=== PATIENT | female | born 1995 | race Caucasian/White ===

== ENCOUNTER 2017-04-29 10:39 | Emergency (ER) | payer MEDICAID, SELFPAY ==
[2017-04-29 10:39] VITALS: BP 155/87; PULSE 79; RESP 16; TEMP 37.1; O2SAT 94; BMI 48.5
--- NOTE | 2017-04-29 11:14 | ED.VISSUMM ---
- ER Visit Summary Date of Service: 04/29/17 Chief Complaint: Headache History of Present Illness: The patient is a 21 F with remote history of migraines who presents for a headache for 1 week. Patient has been having a throbbing headache in her mid frontal region and base of her skull intermittently for 1 week. Her headache is been constant since yesterday morning. She has associated photophobia and nausea. She has been taking Excedrin without control of the headache for the last day. No fever, blurry vision, double vision, vomiting, numbness or weakness in the arms or legs. Patient had migraine headaches 7-8 years ago that resolved after she had her wisdom teeth removed. She had shoulder surgery 6 weeks ago on the right shoulder and has been wearing a sling since that puts pressure at the base of her neck. Physical Examination: Vital signs: afebrile, hemodynamically stable, no hypoxia on room air General: well nourished, well developed, in no distress sitting with the lights off Skin: warm, dry, no rash, no pallor HEENT: normocephalic and atraumatic, no rash, no tenderness; PERRL, EOMI, no nystagmus, positive light sensitivity, moist mucous membranes neck is supple and nontender no meningismus Cardiovascular: regular rate and rhythm without murmurs, no peripheral edema, 2+ pulses all distal extremities Respiratory: No increased work of breathing, lungs are clear to auscultation bilaterally, no rales, rhonchi or wheezing Abdominal: Abdomen is soft, nontender with normoactive bowel sounds, no guarding or rebound, no masses MSK: Moves all extremities, no deformities, normal strength Neuro: Awake and alert, oriented ?4. No facial droop, sensation and motor function intact and symmetric Test Results: [] Emergency Department Course and Treatment: Patient had no red flag symptoms that would be concerning for intracranial hemorrhage or mass. No meningismus. Patient was treated with a migraine cocktail of IV fluids, Toradol, Compazine and Benadryl. She had complete resolution of her headache afterwards and was able to tolerate the lights on. She will follow-up with her doctor for recurrence of her migraine headaches. She was discharged home with return precautions. Treatment Plan: [] Disposition: [] Impression: Grade headache This note was generated with [employer] software. It may contain incorrect words, spelling, and punctuation that were not noted in review of the chart prior to signing ED Disposition - Plan for ED Patient: Disposition: Home or Assisted Living Chief Complaint: Headache Instructions: ED Headache Migraine Referrals: Gayle Fagan NP-C [Primary Care Provider] - 3-5 Days if not improving Additional Instructions: Please continue taking Excedrin as needed for headache. If you begin having migraine-like headaches again, please follow-up with your doctor to discuss treatment options. If you have any worsening of your condition or any new concerning symptoms, please return immediately to the ER for another evaluation.
[2017-04-29] MEDS: Ketorolac 30 MG/ML Syringe 15 MG IV (11:58)
[2017-04-29] MEDS: 0.9% Normal Saline 1,000 ML 999 ML IV (11:58)
[2017-04-29] MEDS: DiphenhydrAMINE 50 MG/ML Syringe IV (11:58)
[2017-04-29] MEDS: proCHLORPERazine 10 MG/2 ML Vial IV (11:59)
--- NOTE | 2017-04-29 13:35 | ED.DEP ---
ED Disposition - Plan for ED Patient: Disposition: Home or Assisted Living Chief Complaint: Headache Instructions: ED Headache Migraine Referrals: Gayle Fagan NP-C [Primary Care Provider] - 3-5 Days if not improving Additional Instructions: Please continue taking Excedrin as needed for headache. If you begin having migraine-like headaches again, please follow-up with your doctor to discuss treatment options. If you have any worsening of your condition or any new concerning symptoms, please return immediately to the ER for another evaluation.
== END 2017-04-29 13:50 | disposition home or self-care (01) ==
PROVIDERS: Emergency Provider Emergency Medicine; Family Provider Nurse Practitioner Family; PCP Nurse Practitioner Family
DX: G43.909 Migraine, unspecified, not intractable, without status migrainosus (principal)
CPT/HCPCS: 96361; 96374; 96375; 99285; J7030; A4216

== ENCOUNTER 2017-07-22 08:30 | Outpatient (RCR) | payer MEDICAID, SELFPAY ==
--- NOTE | 2017-04-08 16:21 | HP.PTEVAL_ITS ---
Patient's Visit Information WOO CONSTANTINO is a 21 year old F referred to Physical Therapy by Out of Town Doctor EDUARD TINEO NP with a diagnosis of R labral tear of the R shoulder s /p 03-23-2017. Date of Evaluation: 04/08/17 Physical Therapist: Loreto Hurtado - Visit Plan Frequency: 2x /Week Duration: 2 Months Plan: Called MD for protocol. For now avoid any PROm greater than 90 degrees elevation and ER greater than 20 degrees. ok for postural exercises. 2X/ week for 8 weeks for R shoulder PROM and then progressing to AAROM and AROM and then strengthening with postural strengthening per protocol. - Subjective Subjective: She had R shoulder surgery September 20 and he put 5 anchors in and tightened up her entire shoulder....did rehab and was doing really well and then in Jan when he was putting on a pair of short boots and had 10/10 pain and then was fastening her bra and she heard a pop and a lot of pain. They moved her MRI up and saw tears. When he got in there her whole labrum was shredded. Then she had Surgery on Mar 23. She saw last and he said that for the next year she has to baby the shoulder and does not think she will put her arm over her head for a year. She started taking glucosamine and chondrotin to see if that will help to strengthen her cartiladge. She has 5/10 pain currently. She is in a sling and said it was up to PT to take her out of it when she was ready. She has restricitions to keep elbow by her side for first of weeks.... Sleeping about 5-6 hours and still sleeps in a recliner because the pull on the shoulder even with a pillow was too much. Pt is L handed. - Pain R shoulder pain Pain Intensity (Out of 10): 5 - Objective PROM R shoulder abd to 65 degrees, flexion to 80 degrees, ER to 15 degrees. Pt demonstrated good R shoulder hang in pendulum. Pt has good movement of her hand and elbow - Goals Goal 1:: I HEP Goal Time Frame: 4-6 Weeks Goal 2:: Increase R shoulder AROM to 90 degrees elevation without pain or substitution Goal Time Frame: 4-6 Weeks Goal 3:: R shoulder flex, abd, ER and IR strength to 4/5 all planes Goal Time Frame: 4-6 Weeks Goal 4:: Sit with good posture during treatment sessions Goal Time Frame: 4-6 Weeks - Rehabilitation Potential Rehabilitation Potential: Good - Anticipated Interventions Patient/Client Instruction: Educate patient on: Condition, Plan of Care For the Purpose of:: To decrease pain, To decrease swelling/inflammation, To increase ROM, To improve nutrient delivery to tissue, To improve muscle performance and motor function, To improve ability to perform ADL's, To increase tolerance to activity/condition/position Therapeutic Exercise to Include: Strength training, Postural training, Flexibilty training, Passive ROM, Active ROM, Scapular Strength/Stabilization For the Purpose of:: To decrease pain, To decrease swelling/inflammation, To increase ROM, To improve nutrient delivery to tissue, To improve muscle performance and motor function, To increase tolerance to activity/condition/ position, To improve performance and independence with ADL's, To improve health of tissue, To decrease soft tissue restriction Manual Therapy Techniques to Include: Passive ROM For the Purpose of:: To decrease pain, To increase ROM, To improve nutrient delivery to tissue, To improve muscle performance and motor function IF ES: Yes Cryotherapy (ice pack, ice massage): Yes Thermo therapy (hot pack): Yes For the Purpose of:: To decrease pain, To decrease swelling/inflammation, To increase ROM, To improve nutrient delivery to tissue Thank you for the opportunity to evaluate your patient. For Medicare and Medicare HMO plans, please review the plan of care and approve it. It will need to be FAXED BACK to us at [phone] for Medicare purposes. Please let me know if there are questions or concerns regarding this plan of care. Physician Signature: Date:
--- NOTE | 2017-07-22 09:02 | HP.PTDCSUM_ITS ---
HP - PT D/C Summary It has been my pleasure to treat WOO CONSTANTINO under orders from METAL SANDER AND FINISHER,EDUARD TINEO, for the diagnosis of R labral tear of the R shoulder s/p 03-23-2017 for a total of 24 visit(s). Discharge Date: Please see the following information for a summary of their discharge status. - Subjective Subjective: Pt reports that she feels a lot better and still struggles with things overhead. She is good with anything out in front of her or playing the piano. - Pain R shoulder pain Pain Intensity (Out of 10): 2 - Overall Improvement % Improvement: 85 - Objective Objective/Function: No problems with any exercises today including wall inch worms - Goals Goal 1:: I HEP Goal Progress: Goal Met Goal 2:: Increase R shoulder AROM to 90 degrees elevation without pain or substitution Goal Progress: Goal Met Goal 3:: R shoulder flex, abd, ER and IR strength to 4/5 all planes Goal Progress: Goal Met Goal 4:: Sit with good posture during treatment sessions Goal Progress: Goal Met - Plan Plan: Re-check next visit. Write PN to MD. Make sure pt has bands to continue with HEP. - D/C Information If there are questions or concerns regarding this patient's physical therapy, please feel free to call me at [phone]. Thank you for the referral of this patient. Sincerely, Loreto Hurtado
== END 2017-07-22 16:16 | disposition home or self-care (01) ==
LOC: PT 08:30
PROVIDERS: Family Provider Nurse Practitioner Family; PCP Nurse Practitioner Family
DX: S43.431D Superior glenoid labrum lesion of right shoulder, subsequent encounter (principal)
CPT/HCPCS: 97014; 97110; 97140; 97161; 97530; G0283

== ENCOUNTER → 2018-01-10 16:01 | Outpatient (CLI) | payer MEDICAID, SELFPAY ==
[2018-01-10 15:26] VITALS: BMI 49.4
[2018-01-10 17:06] LABS: Absolute Lymphocyte Count 2.49 X10^3/ul (0.83-4.51); Absolute Neutrophil Count 6.4 X10^3/uL (2.0-7.7); Basophil# 0.04 X10^3/uL; Basophil% 0.4 % (0-1); Eosinophil# 0.19 X10^3/uL; Hematocrit 35.8 % (37-47); Hemoglobin 11.8 g/dl (12.0-15.0); Lymphocyte # 2.49 X10^3/ul (4.0); Lymphocyte % 25.7 % (19-41); Mean Corpuscular Hgb 27.1 pg (27.0-32.0); Mean Corpuscular Volume 82.1 fL (81-99); Mean Platelet Vol. 11.1 fl (6.2-12.0); Monocyte# 0.55 X10^3/uL; Monocyte% 5.7 % (0-10); Neutrophil # 6.42 X10^3/uL (2.7-7.7); Neutrophil % 66.1 % (47-70); POSITIVE COUNT NO; POSITIVE DIFFERENTIAL NO; POSITIVE MORPHOLOGY NO; Platelet Count 316 K/mm3 (150-450); RBC Distribution Width CV 13.8 % (11.6-14.6); RBC Distribution Width SD 40.7 fl (35.1-43.9); Red Blood Count 4.36 M/mm3 (4.2-5.4); White Blood Count 9.7 K/mm3 (4.4-11.0)
[2018-01-10 18:00] LABS: Follicle Stimulating Hormone 1.5 mIU/mL; Prolactin 7.8 ng/mL; T4 Free Direct 0.89 ng/dL (0.76-1.46); Thyroid Stim Hormone (TSH) 4.72 uIU/mL (0.358-3.74)
[2018-01-16 15:51] LABS: 17-Hydroxyprogesterone 85 ng/dL (.)
[2018-01-16 16:09] LABS: Testosterone Free 1.5 pg/mL (0.0-4.2)
== END ==
PROVIDERS: Family Provider Nurse Practitioner Family; PCP Nurse Practitioner Family; Referring Provider Obstetrics & Gynecology; Visit Provider Obstetrics & Gynecology
DX: N92.6 Irregular menstruation, unspecified (principal)
CPT/HCPCS: 36415; 82627; 83001; 83498; 84146; 84402; 84439; 84443; 85025; 82626

== ENCOUNTER 2018-11-26 16:09 | Emergency (ER) | payer MEDICAID, SELFPAY ==
[2018-09-11 08:38] VITALS: BMI 49.4
[2018-11-26 16:10] VITALS: BP 146/93; PULSE 90; RESP 18; TEMP 36.3; O2SAT 98; BMI 46.5
--- NOTE | 2018-11-26 16:20 | ED.DCSUM_ITS ---
- ER Visit Summary Date of Service: 11/26/18 Chief Complaint: [Left shoulder pain] History of Present Illness: The patient is a 23 F [presents to the emergency department with an injury to her left shoulder. Patient states that last evening while in the shower she reached across her body and felt a pop in her left shoulder. Patient having a hard time abducting secondary to pain. Patient states that she is had 4 surgeries on her right shoulder for various reasons including shaving of the clavicle and acromium. Patient also had repair to the tendons around the shoulder joint with anchoring. Patient has history of hypothyroidism.] Physical Examination: [HEENT-PERRLA, EOMI. Cranial nerves II through XII grossly intact. TMs clear. Mucous membranes moist. No adenopathy. Cardiovascular-regular rate and rhythm without murmur or ectopy Lungs-clear to auscultation, chest wall stable without crepitus or subcu emphysema Abdomen-normoactive bowel sounds, soft, nontender, no rebound or rigidity, no peritoneal signs. Extremities-intact ?4, normal range of motion, normal pulses, atraumatic. Left shoulder-no evidence of swelling or deformity. No sulcus sign. Patient does have range of motion within the glenohumeral joint however somewhat limited secondary to pain. Patient has pain with abduction and internal rotation. She is neurovascular intact distally.] Test Results: [X-rays of the left shoulder were normal as interpreted by myself.] Emergency Department Course and Treatment: [Patient has a sling at home and does not want one from the emergency department.] Treatment Plan: [Patient will be referred to orthopedics instructional aide for follow-up. Patient advised to use a sling for comfort. Patient would like to continue with Aleve at home for any discomfort.] Disposition: [Discharged home in stable condition.] Impression: [Shoulder sprain-possible internal derangement] This note was generated with [employer] dictation software. It may contain incorrect words, spelling, and punctuation that were not noted in review of the chart prior to signing ED Disposition - Plan for ED Patient: Referrals: Gayle Fagan, ROD-C [Primary Care Provider] -
--- NOTE | 2018-11-26 16:30 | RAD_ITS ---
STUDY: X-RAY - LEFT SHOULDER REASON FOR EXAM: Female, 23 years old. Pain and felt a pop TECHNIQUE: 2 view(s) of the shoulder. COMPARISON: None. FINDINGS: Normal glenohumeral articulation. Normal acromioclavicular joint. Normal acromion. Normal humeral head and visualized proximal humerus. The soft tissue structures are unremarkable. Normal visualized pulmonary apex. RAD/Shoulder min 2 Views IMPRESSION: Normal x-ray examination of the shoulder. Electronically Signed: Yonas Tolliver MD at 16:41 EDT Tel , Service support ,
--- NOTE | 2018-11-26 16:42 | ED.DEP ---
ED Disposition - Plan for ED Patient: Instructions: Shoulder Sprain Referrals: Gayle Fagan NP-C [Primary Care Provider] - Malena Paredes DO [STAFF PHYSICIAN] - 3-5 Days
[2018-11-26 16:51] VITALS: RESP 18
== END 2018-11-26 16:51 | disposition home or self-care (01) ==
LOC: ED 16:32
PROVIDERS: Emergency Provider Emergency Medicine; Family Provider Nurse Practitioner Family; PCP Nurse Practitioner Family
DX: S43.402A Unspecified sprain of left shoulder joint, initial encounter (principal); X50.1XXA Overexertion from prolonged static or awkward postures, initial encounter; Y93.E1 Activity, personal bathing and showering; E03.9 Hypothyroidism, unspecified; Z79.899 Other long term (current) drug therapy
CPT/HCPCS: 73030; 99282

== ENCOUNTER → 2018-12-07 13:34 | Outpatient (CLI) | payer MEDICAID, SELFPAY ==
[2018-12-07 13:02] VITALS: BMI 49.6
--- NOTE | 2018-12-07 13:35 | RAD_ITS ---
STUDY: X-RAY - LEFT SHOULDER REASON FOR EXAM: Left shoulder pain. TECHNIQUE: A single axillary view of the shoulder. COMPARISON: Radiographs 11/26/2018. FINDINGS: Normal glenohumeral articulation. Normal acromion. Normal humeral head and visualized proximal humerus. The soft tissue structures are unremarkable. RAD/Shoulder One View IMPRESSION: Normal x-ray examination of the left shoulder. Electronically Signed: Jimmie Gale MD at 15:13 EDT Tel , Service support ,
== END ==
PROVIDERS: Family Provider Nurse Practitioner Family; PCP Nurse Practitioner Family; Referring Provider Orthopaedic Surgery; Visit Provider Orthopaedic Surgery
DX: M25.512 Pain in left shoulder (principal)
CPT/HCPCS: 73020

== ENCOUNTER 2019-01-17 10:30 | Outpatient (RCR) | payer MEDICAID, SELFPAY ==
[2018-12-07 13:02] VITALS: BMI 49.6
--- NOTE | 2018-12-19 09:51 | HP.PTEVAL ---
Patient's Visit Information WOO CONSTANTINO is a 23 year old F referred to Physical Therapy by Malena Paredes DO with a diagnosis of L shoulder Impingement/biceps tendonitis. Date of Evaluation: 12/19/18 Physical Therapist: ALISON Paez - Visit Plan Frequency: 2x /Week Duration: 4 Weeks Plan: 2X/ week for 4 weeks for L shoulder and scapular strength including eccentric bicep strength, postural exercises, US with HEP - Subjective Findings: A month and a half ago she was reaching across her body and she had intense pain and heard a pop. The pain continued through the next day. She went to ER in [place] and they did an x-ray and said it was not dislocated. That night she rolled over on her shoulder and heard another pop and the pain went away. She went to the Ortho Dr Hetal (a week later) and she said that she is not sure if her bicep muscle slipped. She has a little pain if she touches the front part of her shoulder. She has a little pain when she reaches across her body. She can sleep on her L shoulder. She is L handed. - Pain L shoulder pain Pain Intensity (Out of 10): 0 - Objective R shoulder AROM; full range of motion. L shoulder AROM: full range of motion. R shoulder MMT: 4/5 all planes. L shoulder MMT: abd 4-/5, flex 4-/5, ER/IR 4/5. L bicep 4-/5 and increase pain. +HK test for impingement on the L. + Empty Can for slight pain and slight weakness (probably due to pain). Posture: sits with upright posture during eval. Palpation: Tender under the acromion and tender along the biceps tendon the L. L handed L senior facilities manager strength 73# R senior facilities manager strength 69# - Goals Goal 1:: I HEP Goal Time Frame: 4-6 Weeks Goal 2:: Increase L shoulder AROM by 1/2 muscle grade to lessen the chances of dislocation ( at time of the eval MMT: L shoulder MMT: abd 4-/5, flex 4-/5, ER/IR 4/5 and L bicep 4-/5 and increase pain Goal Time Frame: 4-6 Weeks Goal 3:: Be able to reach across her body and not have sharp pain Goal Time Frame: 4-6 Weeks Goal 4:: Sit with upright posture during treatment sessions Goal Time Frame: 4-6 Weeks - Rehabilitation Potential Rehabilitation Potential: Good - Anticipated Interventions Patient/Client Instruction: Educate patient on: Condition, Plan of Care For the Purpose of:: To decrease pain, To increase ROM, To improve nutrient delivery to tissue, To improve muscle performance and motor function, To improve ability to perform ADL's, To increase tolerance to activity/condition/position, To improve performance and independence with ADL's, To improve health of tissue Therapeutic Exercise to Include: Strength training, Postural training, Flexibilty training, Passive ROM, Active ROM, Scapular Strength/Stabilization For the Purpose of:: To decrease pain, To increase ROM, To improve nutrient delivery to tissue, To improve muscle performance and motor function, To improve ability to perform ADL's, To improve health of tissue, To decrease soft tissue restriction IF ES: Yes Cryotherapy (ice pack, ice massage): Yes Ultrasound (thermal/non thermal): Yes For the Purpose of:: To decrease pain, To increase ROM, To improve nutrient delivery to tissue, To improve muscle performance and motor function, To increase tolerance to activity/condition/position, To decrease level of supervision to perform tasks Thank you for the opportunity to evaluate your patient. For Medicare and Medicare HMO plans, please review the plan of care and approve it. It will need to be FAXED BACK to us at [phone] for Medicare purposes. For Medicare only, by signing this I certify the plan of care. Please let me know if there are questions or concerns regarding this plan of care. Physician Signature: Date:
--- NOTE | 2019-01-17 11:04 | HP.PTREVAL ---
Malena Paredes, DO, It has been my pleasure to treat WOO CONSTANTINO over the last 7 visits for L shoulder Impingement/biceps tendonitis. Please see the progress note below for an update on the physical therapy plan of care! Subjective: Pt reports that she feels a lot better.... Objective/Function: MMT: abd 4/5, flex 4/5, ER/IR 4/5 and L bicep 4/5 Plan Plan: Hold chart for 2 weeks and pt will call in if she needs further PT at that point. Then DC PT Goals Goal 1:: I HEP Goal Time Frame: 4-6 Weeks Goal Progress: Goal Met Goal 2:: Increase L shoulder AROM by 1/2 muscle grade to lessen the chances of dislocation ( at time of the eval MMT: L shoulder MMT: abd 4-/5, flex 4-/5, ER/IR 4/5 and L bicep 4-/5 and increase pain Goal Time Frame: 4-6 Weeks Goal 3:: Be able to reach across her body and not have sharp pain Goal Time Frame: 4-6 Weeks Goal Progress: Goal Met Goal 4:: Sit with upright posture during treatment sessions Goal Time Frame: 4-6 Weeks Goal Progress: Goal Met Anticipated Interventions Patient/Client Instruction: Educate patient on: Condition, Plan of Care For the Purpose of:: To decrease pain, To increase ROM, To improve nutrient delivery to tissue, To improve muscle performance and motor function, To improve ability to perform ADL's, To increase tolerance to activity/condition/position, To improve performance and independence with ADL's, To improve health of tissue Therapeutic Exercise to Include: Strength training, Postural training, Flexibilty training, Passive ROM, Active ROM, Scapular Strength/Stabilization For the Purpose of:: To decrease pain, To increase ROM, To improve nutrient delivery to tissue, To improve muscle performance and motor function, To improve ability to perform ADL's, To improve health of tissue, To decrease soft tissue restriction IF ES: Yes Cryotherapy (ice pack, ice massage): Yes Ultrasound (thermal/non thermal): Yes For the Purpose of:: To decrease pain, To increase ROM, To improve nutrient delivery to tissue, To improve muscle performance and motor function, To increase tolerance to activity/condition/position, To decrease level of supervision to perform tasks Please do not hesitate to contact me at [phone] by phone or if you have questions or concerns regarding this new plan of care! Sincerely, Loreto Hurtado, MPT
--- NOTE | 2019-02-12 14:49 | HP.PT.NRP ---
HP - Discharge Summary (1) - Patient Information WOO CONSTANTINO was seen in my office for initial evaluation on 12/19/18. The following Plan of Care was established for this patient: Initial Frequency: 2x /Week Initial Duration: 4 Weeks - Anticipated Interventions Patient/Client Instruction: Educate patient on: Condition, Plan of Care For the Purpose of:: To decrease pain, To increase ROM, To improve nutrient delivery to tissue, To improve muscle performance and motor function, To improve ability to perform ADL's, To increase tolerance to activity/condition/position, To improve performance and independence with ADL's, To improve health of tissue Therapeutic Exercise to Include: Strength training, Postural training, Flexibilty training, Passive ROM, Active ROM, Scapular Strength/Stabilization For the Purpose of:: To decrease pain, To increase ROM, To improve nutrient delivery to tissue, To improve muscle performance and motor function, To improve ability to perform ADL's, To improve health of tissue, To decrease soft tissue restriction IF ES: Yes Cryotherapy (ice pack, ice massage): Yes Ultrasound (thermal/non thermal): Yes For the Purpose of:: To decrease pain, To increase ROM, To improve nutrient delivery to tissue, To improve muscle performance and motor function, To increase tolerance to activity/condition/position, To decrease level of supervision to perform tasks This patient was last seen in our office . Pertinent comments regarding their Physical therapy will appear below: At this point I will be discontinuing this patient from physical therapy. I would be happy to see this patient again in the future if found appropriate by the physician. Thank you! ALISON Paez
== END 2019-01-17 19:00 | disposition home or self-care (01) ==
LOC: PT 10:30
PROVIDERS: Family Provider Nurse Practitioner Family; PCP Nurse Practitioner Family; Referring Provider Orthopaedic Surgery; Visit Provider Orthopaedic Surgery
DX: M75.42 Impingement syndrome of left shoulder (principal); M75.20 Bicipital tendinitis, unspecified shoulder
CPT/HCPCS: 97035; 97110; 97161

== ENCOUNTER 2021-05-21 20:06 | Emergency (ER) | payer MEDICAID, SELFPAY ==
[2021-05-21 20:11] VITALS: BP 151/94; PULSE 74; RESP 18; TEMP 36.6; O2SAT 98; BMI 48.2
[2021-05-21 20:34] LABS: Absolute Lymphocyte Count 1.95 X10^3/uL (0.83-4.51); Absolute Neutrophil Count 7.5 X10^3/uL (2.0-7.7); Basophil# 0.02 X10^3/uL; Basophil% 0.2 % (0-1); Eosinophil# 0.01 X10^3/uL; Eosinophils% 0.1 % (0-5); Hematocrit 39.5 % (37-47); Hemoglobin 13.4 g/dL (12.0-15.0); Lymphocyte # 1.95 X10^3/ul (0.83-4.51); Lymphocyte % 19.5 % (19-41); Mean Corp Hgb Conc 33.9 g/dL (32-36); Mean Corpuscular Hgb 28.8 pg (27.0-32.0); Mean Corpuscular Volume 84.9 fL (81-99); Mean Platelet Vol. 10.9 fl (6.2-12.0); Monocyte# 0.45 X10^3/uL; Monocyte% 4.5 % (0-10); NRBC Flagged by Analyzer 0 % (0-5); Neutrophil # 7.53 X10^3/uL (2.7-7.7); Neutrophil % 75.3 % (47-70); Platelet Count 311 K/mm3 (150-450); RBC Distribution Width SD 40.2 fl (35.1-43.9); Red Blood Count 4.65 M/mm3 (4.2-5.4)
[2021-05-21 20:47] LABS: Anion Gap 8 (5-15); BUN 7 mg/dL (7-18); Calcium,Total 9.3 mg/dL (8.5-10.1); Chloride 109 mmol/L (98-107); Creatinine, Serum 0.78 mg/dL (0.55-1.02); EST Glomerular Filtration Rate 93 mL/min (>60); Est Glom Filt Rate - Afr Amer 113 mL/min (>60); Estimated Creatinine Clearance 96.62 ml/min; Glucose 127 mg/dL (74-106); Potassium 4.1 mmol/L (3.5-5.1); Sodium Level 138 mmol/L (136-145)
--- NOTE | 2021-05-21 22:21 | CT_ITS ---
EXAM: CT ABDOMEN AND PELVIS WITH INTRAVENOUS CONTRAST CLINICAL INDICATION: abd pain TECHNIQUE: Helically acquired images were obtained of the abdomen and pelvis with intravenous contrast. This CT exam was performed using one or more of the following dose reduction techniques: automated exposure control, adjustment of the mA and/or kV according to patient size, and/or use of iterative reconstruction technique. This report was created using [employer] report generation technology. RADIATION DOSAGE (If Required by State): CTDIvol = (25.35) mGy, DLP = (1292.44) mGycm. CONTRAST: IV 100mL Isovue-300 COMPARISON: 07/13/2011. FINDINGS: LOWER THORAX: Unremarkable. Lung bases are clear. No cardiomegaly. No significant pericardial effusion. ABDOMEN: LIVER: Unremarkable. Homogeneous. No focal mass. GALLBLADDER AND BILE DUCTS: Multiple gallstones. No gallbladder wall thickening or pericholecystic fluid. No intra- or extrahepatic biliary ductal dilation. PANCREAS: Unremarkable. No focal cystic or solid mass. SPLEEN: Unremarkable. Normal size without focal cystic or solid mass. ADRENALS: Unremarkable. No nodules. KIDNEYS AND URETERS: Unremarkable. Normal renal size and position. No hydronephrosis. STOMACH AND BOWEL: Unremarkable. No stomach or bowel distention. No focal inflammatory change. PELVIS: APPENDIX: Normal appendix. BLADDER: Unremarkable. REPRODUCTIVE: Unremarkable as visualized. No mass. ABDOMEN and PELVIS: INTRAPERITONEAL SPACE: Unremarkable. No ascites or other fluid collection. No free air. BONES/JOINTS: Unremarkable. No suspicious lytic or blastic abnormality. SOFT TISSUES: Unremarkable. No discrete abdominal or pelvic wall hernia. VASCULATURE: Unremarkable. Abdominal aorta is non-dilated. LYMPH NODES: Unremarkable. No enlarged lymph nodes. CT/Abdomen/Pelvis W IV Cont ONLY IMPRESSION: Cholelithiasis without specific signs of acute cholecystitis. Electronically Signed: Michael Amin MD at 23:32 EDT ,
[2021-05-21 22:29] VITALS: BP 134/78; PULSE 78; RESP 14; O2SAT 98
[2021-05-21 22:52] LABS: AST(SGOT) 115 U/L (15-37); Alanine Aminotransfer ALT/SGPT 73 U/L (13-56); Albumin, Serum 3.5 g/dL (3.2-5.0); Alkaline Phosphatase 134 U/L (45-117); Bilirubin, Direct 1.09 mg/dL (0.00-0.30); Globulin 4.2 g/dL (2.2-4.2); Lipase 113 U/L (73-393); Protein, Total 7.7 g/dL (6.4-8.2)
--- NOTE | 2021-05-21 22:59 | EX.ED.DYSGE1 ---
HPI History of Present Illness Chief Complaint: Abd Pain Narrative Narrative: Patient is a 26-year-old female with a past medical history of gallstones. She states that she noticed when she awoke this morning she had some pain in her right sided mid to low back. She states she thought she had just injured it over the last 1 to 2 days however despite taking over the counter medication and giving it some time throughout the day the pain seemed to worsen and then moved to the mid epigastric region of her abdomen. She went to an outside facility where she had blood work and a ultrasound obtained which showed gallstones but no signs of acute cholecystitis. Patient states that she was discharged home but despite this still has pain and feels like it is worsening and therefore comes to the hospital for repeat evaluation. [facility] Medical History Allergies Hyperthyroidism Left ankle sprain Sprain of left foot Home Medications levothyroxine 25 mcg tablet 25 mcg PO DAILY 09/11/18 [History Last Taken Unknown] norethindrone 1 mg-ethinyl estradiol 20 mcg (24)-iron 75 mg (4) tablet 1 tab PO QDAY #28 tab 09/11/18 [Rx Last Taken Unknown] norethindrone 1 mg-ethinyl estradiol 20 mcg (24)-iron 75 mg (4) tablet 1 tab PO QDAY #84 tab 09/11/18 [Rx Last Taken Unknown] antiarthritic combination no.2 900 mg tablet mg PO tab 12/05/18 [History Last Taken Unknown] multivitamin 1 tab PO DAILY 12/05/18 [History Last Taken Unknown] azithromycin 250 mg tablet 250 mg PO QDAY #6 tab 01/23/19 [Rx Last Taken Unknown] benzonatate 200 mg capsule 200 mg PO TID PRN #20 cap 01/23/19 [Rx Last Taken Unknown] omega-3 fatty acids 1,000 mg capsule 1,000 mg PO DAILY 01/23/19 [History Last Taken Unknown] red yeast rice 600 mg capsule 600 mg PO DAILY 01/23/19 [History Last Taken Unknown] hydrocodone-acetaminophen 1 tab PO Q6H PRN 3 Days #12 tab 05/22/21 [Rx Last Taken Unknown] ondansetron 4 mg PO TID PRN PRN #21 tab 05/22/21 [Rx Last Taken Unknown] Allergy/AdvReac Type Severity Reaction Status Date / Time rizatriptan [From Maxalt] Allergy Anaphylaxis Verified 05/21/21 20:15 sumatriptan [From Imitrex] Allergy Anaphylaxis Verified 05/21/21 20:15 morphine AdvReac Vomiting Verified 05/21/21 20:15 Family History Grandmother Diabetes Heart disease Hypertension Father Diabetes Heart disease Hypertension Surgical History H/O dilation and curettage Social History Smoking Status: Never smoker alcohol intake: never substance use type: does not use caffeine: Yes what type of physical activity do you participate in: walking seatbelt use: always do you feel safe at home: Yes additional social history: single, works from home ROS ROS ED Constitutional Constitutional ED: Denies chills or fever(s) ENT ENT ED: Denies sore throat Cardiovascular Cardiovascular: Denies chest pain Respiratory/Chest Respiratory/Chest: Denies cough or dyspnea Gastrointestinal Gastrointestinal: Reports abdominal pain; Denies diarrhea, nausea or vomiting Genitourinary Genitourinary ED: Denies dysuria Musculoskeletal Musculoskeletal: Reports back pain; Denies myalgias Integumentary Denies rash Neurologic Neurologic: Denies headache(s) Hematologic/Lymphatic Hematologic/Lymphatic: Denies easy bleeding or easy bruising EXAM Physical Exam Const Vital Signs: 05/21/21 20:11 05/21/21 22:29 Temperature 97.9 F Temperature Source Temporal Pulse Rate 74 78 Respiratory Rate 18 14 Blood Pressure 151/94 H 134/78 H Blood Pressure Mean 113 96 Pulse Ox 98 98 Oxygen Delivery Method Room Air Room Air Positive well nourished, well developed and obese General Appearance ED: well developed Nutritional Appearance: obese HEENT Reports moist mucous membranes Eyes PERRL and EOMs intact bilaterally General Eye ED: Negative for scleral icterus Neck supple Resp normal respiratory effort and clear to auscultation bilaterally Cardio regular rate and regular rhythm Rate: other Other Details: Radial pulses are +2-4 bilaterally are equal and symmetric GI non-distended and no masses GI Narrative: Pain with palpation in the right upper quadrant and midepigastric region. No voluntary guarding or rigidity. Negative West sign. No pulsatile mass or fluid wave noted Auscultation: normoactive bowel sounds Palpation: soft Back/Spine Back/Spine Narrative: Positive right CVA pain Extremity normal to inspection Neuro oriented x3 and CN's II-XII intact bilaterally Sensorium / Orientation: alert Motor Exam: strength 5/5 throughout Psych mental status grossly normal Skin no rashes or lesions noted Skin Narrative: No overlying soft tissue changes to suggest trauma or infection General Skin Exam: Negative for jaundice MDM MDM MDM Narrative Medical decision making narrative: Presented to the ER afebrile and in no acute distress. She had blood work and gallbladder ultrasound done earlier but with pain in the right upper quadrant and right back there is concern this could be a possible pyelonephritis or pancreatitis so elected to repeat blood work urine sample and a CT scan of the abdomen and pelvis. Blood work revealed mild elevation to the liver enzymes as well as total bilirubin. Her CAT scan confirmed gallstones from the previous ultrasound but showed no signs of infectious or inflammatory changes in the remainder of the imaging revealed no acute findings. On reevaluation the patient is resting comfortably and reports resolution of her pain and her abdomen remains soft and nonsurgical. Therefore I do feel the patient is having biliary colic as a cause of her pain but as it is not infected and she is not having intractable pain there is no need for admission and emergent surgical fixation. Therefore she will be discharged home with symptomatic medications and can follow-up with general surgery to discuss need for cholecystectomy Lab Data Attestation: I reviewed the patient's lab results. Labs: Laboratory Results - last 24 hr 05/21/21 05/21/21 05/21/21 20:20 20:20 20:20 WBC 10.0 RBC 4.65 Hgb 13.4 Hct 39.5 MCV 84.9 MCH 28.8 MCHC 33.9 RDW Std Deviation 40.2 RDW Coeff of Rober 13.0 Plt Count 311 MPV 10.9 Immature Gran % (Auto) 0.400 Neut % (Auto) 75.3 H Lymph % (Auto) 19.5 Elbert % (Auto) 4.5 Eos % (Auto) 0.1 Baso % (Auto) 0.2 Absolute Neuts (auto) 7.5 Absolute Lymphs (auto) 1.95 Nucleated RBC % 0 Sodium 138 Potassium 4.1 Chloride 109 H Carbon Dioxide 21.0 Anion Gap 8 BUN 7 Creatinine 0.78 Estim Creat Clear Calc 96.62 Est GFR (MDRD) Af Amer 113 Est GFR (MDRD) Non-Af 93 BUN/Creatinine Ratio 9.0 L Glucose 127 H Calcium 9.3 Total Bilirubin 1.50 H Direct Bilirubin 1.09 H AST 115 H ALT 73 H Alkaline Phosphatase 134 H Total Protein 7.7 Albumin 3.5 Globulin 4.2 Lipase 113 Urine Color Urine Clarity Urine pH Ur Specific [place] Urine Protein Urine Glucose (UA) Urine Ketones Urine Occult Blood Urine Nitrite Urine Bilirubin Urine Urobilinogen Ur Leukocyte Esterase Urine RBC Urine WBC Ur Squamous Epith Cells Amorphous Sediment Urine Bacteria Urine Mucus Urine Test 05/21/21 23:08 WBC RBC Hgb Hct MCV MCH MCHC RDW Std Deviation RDW Coeff of Rober Plt Count MPV Immature Gran % (Auto) Neut % (Auto) Lymph % (Auto) Elbert % (Auto) Eos % (Auto) Baso % (Auto) Absolute Neuts (auto) Absolute Lymphs (auto) Nucleated RBC % Sodium Potassium Chloride Carbon Dioxide Anion Gap BUN Creatinine Estim Creat Clear Calc Est GFR (MDRD) Af Amer Est GFR (MDRD) Non-Af BUN/Creatinine Ratio Glucose Calcium Total Bilirubin Direct Bilirubin AST ALT Alkaline Phosphatase Total Protein Albumin Globulin Lipase Urine Color Yellow Urine Clarity Sl. Cloudy Urine pH 6.5 Ur Specific [place] 1.015 Urine Protein 15 H Urine Glucose (UA) Normal Urine Ketones 5 H Urine Occult Blood Negative Urine Nitrite Negative Urine Bilirubin 1 H Urine Urobilinogen 4 H Ur Leukocyte Esterase 25 H Urine RBC 0 SEEN Urine WBC 0-5 SEEN Ur Squamous Epith Cells 0-5 SEEN Amorphous Sediment 1+ URATE Urine Bacteria RARE Urine Mucus 0 SEEN Urine Test Negative Radiography Diagnostic Testing: Clinical Impression(s) from Imaging Studies Abdomen/Pelvis CT 05/21/21 22:21 IMPRESSION: Cholelithiasis without specific signs of acute cholecystitis. Electronically Signed: Michael Amin MD at 23:32 EDT , Discharge Plan Triage Chief Complaint: Abd Pain ED Provider: Adair Bianchi Dx/Rx/DC Orders Clinical Impression: Cholelithiasis, Biliary colic Instructions: What Are Gallstones, Treating Gallstones Prescriptions: New hydrocodone-acetaminophen 5-325 mg tablet 1 tab PO Q6H PRN (Reason: pain) 3 Days Qty: 12 RF: 0 ondansetron 4 mg tablet,disintegrating 4 mg PO TID PRN PRN (Reason: nausea and vomiting) Qty: 21 RF: 0 No Action levothyroxine 25 mcg tablet 25 mcg PO DAILY RF: 0 norethindrone-e.estradiol-iron [Junel Fe 24] 1 mg-20 mcg (24)/75 mg (4) tablet 1 tab PO QDAY Qty: 28 RF: 12 norethindrone-e.estradiol-iron [Junel Fe 24] 1 mg-20 mcg (24)/75 mg (4) tablet 1 tab PO QDAY Qty: 84 RF: 4 glucosamine-chondroitin 900 mg tablet PO RF: 0 multivitamin [Daily Multi-Vitamin] Tablet 1 tab PO DAILY RF: 0 omega-3 fatty acids [Fish Oil Concentrate] 1,000 mg capsule 1,000 mg PO DAILY RF: 0 azithromycin 250 mg tablet 250 mg PO QDAY Qty: 6 RF: 0 benzonatate 200 mg capsule 200 mg PO TID PRN (Reason: cough) Qty: 20 RF: 0 red yeast rice 600 mg capsule 600 mg PO DAILY RF: 0 Primary Care Provider: Gayle Fagan NP Referrals: Michael Thompson MD [STAFF PHYSICIAN] - 3-5 Days Gayle Fagan NP, [employer] [Primary Care Provider] - Activity Restrictions/Additional Instructions: Please eat smaller meals and stay away from greasy fatty foods and tried to maintain a clear liquid diet for the next 1 to 2 days to help with your abdominal pain. Please follow-up with general surgery to discuss need for gallbladder removal return to the ER should you have any further concerns Disposition Disposition: Home, Self Care
[2021-05-21] MEDS: Ondansetron 4 MG/2 ML Vial IV (23:10)
[2021-05-21] MEDS: 0.9% Normal Saline 1,000 ML 999 ML IV (23:10)
[2021-05-21 23:12] LABS: Mucous, Urine 0 SEEN /hpf (<or=2+); Red Blood Cells-Urine 0 SEEN /hpf (0-5)
[2021-05-21 23:20] LABS: Color, Urine Yellow (Yellow); Glucose, Dipstick Normal (Normal); Ketone-Dipstick 5 mg/dl (Negative); Leukocyte Esterase-Dipstick 25 /ul (Negative); Nitrite-Dipstick Negative (Negative); Occult Blood-Urine Negative /ul (Negative); Protein-Dipstick 15 mg/dl (Negative); Specific Gravity, Urine 1.015 (1.002-1.030); Urine Clarity Sl. Cloudy (Clear); Urine Urobilinogen 4 mg/dl (Normal); Urine pH 6.5 (5.0 - 8.0)
[2021-05-21 23:21] LABS: Urine Bilirubin Dipstick 1 mg/dL (Negative)
[2021-05-21 23:25] LABS: Amorphous Sediment 1+ URATE; Bacteria RARE /hpf (None Seen); Internal QC Validated? YES +Cl - CLEAR BKGD; Squamous Epithelial Cells - UA 0-5 SEEN /hpf (5-10); White Blood Cells 0-5 SEEN /hpf (0-5)
[2021-05-21 23:26] LABS: Pregnancy, Urine Negative Negative
[2021-05-21] MEDS: Ketorolac 30 MG/ML Syringe IV (23:40)
[2021-05-22] MEDS: HYDROcodone Bitartrate/Apap 5/325 Tablet PO (00:10)
== END 2021-05-22 00:11 | disposition home or self-care (01) ==
PROVIDERS: Emergency Provider Emergency Medicine; PCP Nurse Practitioner Family; Visit Provider Emergency Medicine
DX: K80.70 Calculus of gallbladder and bile duct without cholecystitis without obstruction (principal); E66.9 Obesity, unspecified; E05.90 Thyrotoxicosis, unspecified without thyrotoxic crisis or storm; Z79.899 Other long term (current) drug therapy
CPT/HCPCS: 74177; 80048; 80076; 81001; 81025; 83690; 85025; 96361; 96374; 96375; 99282; Q9967; A4216; J2405

== ENCOUNTER 2021-05-25 09:02 | Observation (INO) | payer MEDICAID, SELFPAY ==
[2021-05-25 09:05] VITALS: BP 130/83; PULSE 86; RESP 17; TEMP 36.1; O2SAT 97; BMI 49.1
--- NOTE | 2021-05-25 09:14 | US_ITS ---
HISTORY: RUQ pain. TECHNIQUE: Acevedo scale and color Doppler imaging was performed of the right upper quadrant. Number of images including paperwork: 98. COMPARISON: CT 05/21/2021. FINDINGS: LIVER: 17.6 cm in length. Homogeneous echotexture without focal lesion. No intrahepatic biliary ductal dilation. CBD: 6 mm in diameter, upper limits of normal. GALLBLADDER: Multiple gallstones. 6 mm wall thickness, thickened. No pericholecystic fluid. Positive sonographic West sign reported. PANCREAS: Not well-visualized due to overlying bowel gas. RIGHT KIDNEY: 10.9 cm in length with a cortical thickness of 16 mm. No hydronephrosis or gross renal mass. US/Gallbladder IMPRESSION: Cholelithiasis with gallbladder wall thickening, concerning for acute cholecystitis in the appropriate clinical setting. Mild hepatomegaly. at 1109 Reported and signed by: Argenis Irizarry MD Electronically Signed: Argenis Irizarry MD at 11:08 EDT ,
--- NOTE | 2021-05-25 09:23 | EDS_ITS ---
HPI HPI - GI History of Present Illness Chief Complaint: Abd Pain Narrative Narrative: With past medical history of gallstones. Patient states that she was seen recently at [facility] for evaluation of this. She did have gallstones on her CAT scan. She previously had an ultrasound and blood work done. She was discharged home for follow-up with Dr. Thompson. She states he has an appointment on Tuesday but states he is not holding down any food or fluid. She is extremely nauseous. Her right upper quadrant hurts worse. She denies any fever. No diarrhea or constipation. No urinary or vaginal complaints. Patient is a 26-year-old female with a past medical history of gallstones. [facility] Medical History Allergies Hyperthyroidism Left ankle sprain Sprain of left foot Home Medications levothyroxine 25 mcg tablet 25 mcg PO DAILY 09/11/18 [History Last Taken Unknown] norethindrone 1 mg-ethinyl estradiol 20 mcg (24)-iron 75 mg (4) tablet 1 tab PO QDAY #28 tab 09/11/18 [Rx Last Taken Unknown] antiarthritic combination no.2 900 mg tablet mg PO tab 12/05/18 [History Last Taken Unknown] multivitamin 1 tab PO DAILY 12/05/18 [History Last Taken Unknown] hydrocodone-acetaminophen 1 tab PO Q6H PRN 3 Days #12 tab 05/22/21 [Rx Last Taken Unknown] ondansetron 4 mg PO TID PRN PRN #21 tab 05/22/21 [Rx Last Taken Unknown] Allergy/AdvReac Type Severity Reaction Status Date / Time rizatriptan [From Maxalt] Allergy Anaphylaxis Verified 05/25/21 09:02 sumatriptan [From Imitrex] Allergy Anaphylaxis Verified 05/25/21 09:02 morphine AdvReac Vomiting Verified 05/25/21 09:02 Family History Grandmother Diabetes Heart disease Hypertension Father Diabetes Heart disease Hypertension Surgical History H/O dilation and curettage Social History Smoking Status: Never smoker alcohol intake: never substance use type: does not use caffeine: Yes what type of physical activity do you participate in: walking seatbelt use: always do you feel safe at home: Yes additional social history: single, works from home ROS ROS ED Constitutional Constitutional ED: Denies chills or fever(s) ENT ENT ED: Denies rhinorrhea or sore throat Cardiovascular Cardiovascular: Denies chest pain or palpitations Respiratory/Chest Respiratory/Chest: Denies cough or dyspnea Gastrointestinal Gastrointestinal: Reports abdominal pain and nausea; Denies diarrhea or vomiting Genitourinary Genitourinary ED: Denies dysuria or hematuria Musculoskeletal Musculoskeletal: Denies arthralgias or myalgias Integumentary Denies Abrasions or rash Neurologic Neurologic: Denies headache(s) Psychiatric Psychiatric: Denies anxiety or depression EXAM Physical Exam Const Vital Signs: 05/25/21 09:05 Temperature 97.0 F L Temperature Source Temporal Pulse Rate 86 Respiratory Rate 17 Blood Pressure 130/83 H Blood Pressure Mean 98 Pulse Ox 97 Oxygen Delivery Method Room Air Positive well nourished General Appearance ED: NAD; Negative for pallor HEENT Reports moist mucous membranes normocephalic and atraumatic Eyes PERRL and EOMs intact bilaterally General Eye ED: Negative for pale conjunctiva or scleral icterus Resp normal respiratory effort and clear to auscultation bilaterally Cardio regular rate and regular rhythm GI Palpation: tender West's sign Neuro CN's II-XII intact bilaterally Sensorium / Orientation: alert, oriented to person, oriented to place and oriented to time Psych mental status grossly normal Skin General Skin Exam: Negative for jaundice or pallor Rashes: no rashes MDM MDM MDM Narrative Medical decision making narrative: Patient presenting her third visit to the emergency room for right upper quadrant pain. I obtained blood work and she does not have a leukocytosis. Her LFTs have actually improved. Lipase is normal. Vital signs are stable and she is afebrile. She is medicated with morphine and Zofran and feels some improvement. I had a follow-up ultrasound ordered and this shows concern for cholecystitis. Given that she has been to the emergency room now 3 times and her ultrasound is worsening even with normal labs I think she needs evaluated by surgery. I spoke with Dr. Lopez who agreed to admit the patient to remove her gallbladder tomorrow. Patient stable on transfer to the floor. Impression: 1. Acute cholecystitis Lab Data Labs: Laboratory Results - last 24 hr 05/25/21 05/25/21 09:33 09:58 WBC 7.1 RBC 4.45 Hgb 12.7 Hct 38.0 MCV 85.4 MCH 28.5 MCHC 33.4 RDW Std Deviation 40.3 RDW Coeff of Rober 13.0 Plt Count 267 MPV 11.0 Immature Gran % (Auto) 0.100 Neut % (Auto) 65.8 Lymph % (Auto) 25.4 [place] % (Auto) 5.2 Eos % (Auto) 3.2 Baso % (Auto) 0.3 Absolute Neuts (auto) 4.7 Absolute Lymphs (auto) 1.81 Nucleated RBC % 0 Sodium 137 Potassium 4.9 Chloride 107 Carbon Dioxide 23.0 Anion Gap 7 BUN 6 L Creatinine 0.88 Estim Creat Clear Calc 85.64 Est GFR (MDRD) Af Amer 99 Est GFR (MDRD) Non-Af 82 BUN/Creatinine Ratio 6.9 L Glucose 95 Calcium 8.9 Total Bilirubin 0.60 Direct Bilirubin 0.10 AST 44 H ALT 44 Alkaline Phosphatase 95 Total Protein 7.4 Albumin 3.0 L Globulin 4.4 H Lipase 74 Radiography Diagnostic Testing: Clinical Impression(s) from Imaging Studies Gallbladder Ultrasound 05/25/21 09:14 IMPRESSION: Cholelithiasis with gallbladder wall thickening, concerning for acute cholecystitis in the appropriate clinical setting. Mild hepatomegaly. at 1109 Reported and signed by: Argenis Irizarry MD Electronically Signed: Argenis Irizarry MD at 11:08 EDT , Discharge Plan Disposition Disposition: Acute Care Hospital [facility] Discharge Date/Time: 05/25/21 13:48
[2021-05-25 10:02] LABS: Absolute Lymphocyte Count 1.81 X10^3/uL (0.83-4.51); Absolute Neutrophil Count 4.7 X10^3/uL (2.0-7.7); Basophil# 0.02 X10^3/uL; Basophil% 0.3 % (0-1); Eosinophil# 0.23 X10^3/uL; Eosinophils% 3.2 % (0-5); Hemoglobin 12.7 g/dL (12.0-15.0); Lymphocyte # 1.81 X10^3/ul (0.83-4.51); Lymphocyte % 25.4 % (19-41); Mean Corp Hgb Conc 33.4 g/dL (32-36); Mean Corpuscular Hgb 28.5 pg (27.0-32.0); Mean Corpuscular Volume 85.4 fL (81-99); Monocyte# 0.37 X10^3/uL; Monocyte% 5.2 % (0-10); NRBC Flagged by Analyzer 0 % (0-5); Neutrophil % 65.8 % (47-70); Platelet Count 267 K/mm3 (150-450); RBC Distribution Width SD 40.3 fl (35.1-43.9); Red Blood Count 4.45 M/mm3 (4.2-5.4); White Blood Count 7.1 K/mm3 (4.4-11.0)
[2021-05-25 10:06] LABS: AST(SGOT) 44 U/L (15-37); Alanine Aminotransfer ALT/SGPT 44 U/L (13-56); Alkaline Phosphatase 95 U/L (45-117); Anion Gap 7 (5-15); BUN 6 mg/dL (7-18); BUN/Creat Ratio 6.9 RATIO (10-20); Calcium,Total 8.9 mg/dL (8.5-10.1); Chloride 107 mmol/L (98-107); Creatinine, Serum 0.88 mg/dL (0.55-1.02); EST Glomerular Filtration Rate 82 mL/min (>60); Est Glom Filt Rate - Afr Amer 99 mL/min (>60); Estimated Creatinine Clearance 85.64 ml/min; Globulin 4.4 g/dL (2.2-4.2); Glucose 95 mg/dL (74-106); Lipase 74 U/L (73-393); Potassium 4.9 mmol/L (3.5-5.1); Protein, Total 7.4 g/dL (6.4-8.2); Sodium Level 137 mmol/L (136-145)
[2021-05-25] MEDS: 0.9% Normal Saline 1,000 ML 999 ML IV (10:28)
[2021-05-25] MEDS: HYDROmorphone 0.5 MG/0.5 ML SYRINGE IV (10:28)
[2021-05-25] MEDS: Ondansetron 4 MG/2 ML Vial IV ×2 (10:30→22:26)
--- NOTE | 2021-05-25 12:30 | CON.PCM.SX_ITS ---
Assessment & Plan Assessment/Plan (1) Cholelithiasis: QUALIFIERS: Cholelithiasis location: gallbladder Cholecystitis presence: with cholecystitis Cholecystitis acuity: acute Biliary obstruction: without biliary obstruction Qualified Code(s): K80.00 - Calculus of gallbladder with acute cholecystitis without obstruction (2) Biliary colic: (3) Abdominal pain, RUQ: PLAN: My plan is to perform a laparoscopic cholecystectomy without intraoperative cholangiogram. The planned surgical procedure was discussed extensively with the patient. The risks, benefits, anticipated outcomes and possible complication were mentioned. My staff has also explained the procedure in understandable terms and the patient was given the option to take printed material concerning the planned procedure. The patient had the opportunity to ask questions concerning the planned procedure. The patient freely consents to the planned procedure. HPI Consult Data Date of Consult: 05/25/21 HPI Narrative HPI Narrative: WOO CONSTANTINO, is a 26 F who presents With past medical history of gallstones. Patient states that she was seen recently at [facility] for evaluation of this. She did have gallstones on her CAT scan. She previously had an ultrasound and blood work done. She was discharged home for follow-up with Dr. Thompson. She states he has an appointment on Tuesday but states he is not holding down any food or fluid. She is extremely nauseous. Her right upper quadrant hurts worse. She denies any fever. No diarrhea or constipation. No urinary or vaginal complaints. Patient is a 26-year-old female with a past medical history of gallstones. [facility] Medical History Allergies Hyperthyroidism Left ankle sprain Sprain of left foot Home Medications levothyroxine 25 mcg tablet 25 mcg PO DAILY 09/11/18 [History Last Taken Unknown] norethindrone 1 mg-ethinyl estradiol 20 mcg (24)-iron 75 mg (4) tablet 1 tab PO QDAY #28 tab 09/11/18 [Rx Last Taken Unknown] antiarthritic combination no.2 900 mg tablet mg PO tab 12/05/18 [History Last Taken Unknown] multivitamin 1 tab PO DAILY 12/05/18 [History Last Taken Unknown] hydrocodone-acetaminophen 1 tab PO Q6H PRN 3 Days #12 tab 05/22/21 [Rx Last Taken Unknown] ondansetron 4 mg PO TID PRN PRN #21 tab 05/22/21 [Rx Last Taken Unknown] Allergy/AdvReac Type Severity Reaction Status Date / Time rizatriptan [From Maxalt] Allergy Anaphylaxis Verified 05/25/21 09:02 sumatriptan [From Imitrex] Allergy Anaphylaxis Verified 05/25/21 09:02 morphine AdvReac Vomiting Verified 05/25/21 09:02 Family History Grandmother Diabetes Heart disease Hypertension Father Diabetes Heart disease Hypertension Surgical History H/O dilation and curettage Social History Smoking Status: Never smoker alcohol intake: never substance use type: does not use caffeine: Yes what type of physical activity do you participate in: walking seatbelt use: always do you feel safe at home: Yes additional social history: single, works from home ROS Constitutional Constitutional: Denies chills, fatigue or fever(s) Cardiovascular Cardiovascular: Denies chest pain Respiratory/Chest Respiratory/Chest: Reports cough; Denies dyspnea Gastrointestinal Gastrointestinal: Reports abdominal pain, nausea and vomiting Physical Exam Const alert, oriented x3 and no apparent distress General Appearance: cooperative HEENT normocephalic and head/scalp atraumatic Eyes PERRL and EOMs intact bilaterally Resp normal respiratory effort and clear to auscultation bilaterally Cardio Rate: regular rate Rhythm: regular rhythm GI Palpation: tender RUQ and West's sign and guarding Extremity normal to inspection Lab / Micro Data Result Diagrams: 05/25/21 09:58 05/25/21 09:33 Labs: Laboratory Results - last 24 hr 05/25/21 09:33: Sodium 137, Potassium 4.9, Chloride 107, Carbon Dioxide 23.0, Anion Gap 7, BUN 6 L, Creatinine 0.88, Estim Creat Clear Calc 85.64, Est GFR (MDRD) Af Amer 99, Est GFR (MDRD) Non-Af 82, BUN/Creatinine Ratio 6.9 L, Glucose 95, Calcium 8.9, Total Bilirubin 0.60, Direct Bilirubin 0.10, AST 44 H, ALT 44, Alkaline Phosphatase 95, Total Protein 7.4, Albumin 3.0 L, Globulin 4.4 H, Lipase 74 05/25/21 09:58: WBC 7.1, RBC 4.45, Hgb 12.7, Hct 38.0, MCV 85.4, MCH 28.5, MCHC 33.4, RDW Std Deviation 40.3, RDW Coeff of Rober 13.0, Plt Count 267, MPV 11.0, Immature Gran % (Auto) 0.100, Neut % (Auto) 65.8, Lymph % (Auto) 25.4, [place] % ( Auto) 5.2, Eos % (Auto) 3.2, Baso % (Auto) 0.3, Absolute Neuts (auto) 4.7, Absolute Lymphs (auto) 1.81, Nucleated RBC % 0 Radiology Impression Gallbladder Ultrasound 05/25/21 09:14 IMPRESSION: Cholelithiasis with gallbladder wall thickening, concerning for acute cholecystitis in the appropriate clinical setting. Mild hepatomegaly. at 1109 Reported and signed by: Argenis Irizarry MD Electronically Signed: Argenis Irizarry MD at 11:08 EDT ,
--- NOTE | 2021-05-25 13:08 | NURSING ---
MED SURG OBS FUNMILAYO CHOLECYSTITIS
[2021-05-25 13:40] VITALS: BP 121/74; PULSE 55; PULSE 57; RESP 17; TEMP 36.8; O2SAT 98
[2021-05-25 14:00] VITALS: BMI 49.1
[2021-05-25 14:27] VITALS: BP 119/74; PULSE 54; RESP 16; TEMP 36.8; O2SAT 98
[2021-05-25] MEDS: 0.9% Normal Saline 1,000 ML 90 ML IV ×2 (14:38→22:13)
[2021-05-25 21:12] LABS: Internal QC Validated? YES +Cl - CLEAR BKGD; Pregnancy, Urine Negative Negative
[2021-05-25] MEDS: Acetaminophen 500 MG Tablet 1000 MG PO (22:11)
[2021-05-25 22:27] VITALS: BP 103/54; PULSE 72; RESP 16; TEMP 36.6; O2SAT 98
[2021-05-25 22:50] VITALS: BP 103/54; PULSE 72; RESP 16; TEMP 36.6; O2SAT 98
[2021-05-26] VITALS (11 sets, daily range): BP systolic 112–134; BP diastolic 63–85; PULSE 54–100; RESP 14–18; TEMP 35.8–36.8; O2SAT 92–99; BMI 49.1
[2021-05-26 05:18] LABS: Absolute Lymphocyte Count 2.28 X10^3/uL (0.83-4.51); Absolute Neutrophil Count 3.3 X10^3/uL (2.0-7.7); Basophil# 0.02 X10^3/uL; Basophil% 0.3 % (0-1); Eosinophil# 0.29 X10^3/uL; Eosinophils% 4.6 % (0-5); Hematocrit 34.5 % (37-47); Hemoglobin 11.6 g/dL (12.0-15.0); Lymphocyte # 2.28 X10^3/ul (0.83-4.51); Mean Corp Hgb Conc 33.6 g/dL (32-36); Mean Corpuscular Hgb 28.9 pg (27.0-32.0); Mean Platelet Vol. 11.4 fl (6.2-12.0); Monocyte# 0.42 X10^3/uL; Monocyte% 6.6 % (0-10); NRBC Flagged by Analyzer 0 % (0-5); Neutrophil # 3.31 X10^3/uL (2.7-7.7); Neutrophil % 52.2 % (47-70); Platelet Count 228 K/mm3 (150-450); RBC Distribution Width SD 40.9 fl (35.1-43.9); Red Blood Count 4.01 M/mm3 (4.2-5.4); White Blood Count 6.3 K/mm3 (4.4-11.0)
[2021-05-26 05:49] LABS: ALB/GLOB Ratio 0.8 RATIO (0.9-2.4); AST(SGOT) 26 U/L (15-37); Alanine Aminotransfer ALT/SGPT 34 U/L (13-56); Albumin, Serum 2.7 g/dL (3.2-5.0); Alkaline Phosphatase 85 U/L (45-117); Anion Gap 6 (5-15); BUN 5 mg/dL (7-18); BUN/Creat Ratio 7.1 RATIO (10-20); Chloride 109 mmol/L (98-107); Creatinine, Serum 0.71 mg/dL (0.55-1.02); EST Glomerular Filtration Rate 105 mL/min (>60); Est Glom Filt Rate - Afr Amer 127 mL/min (>60); Estimated Creatinine Clearance 106.15 ml/min; Globulin 3.6 g/dL (2.2-4.2); Glucose 87 mg/dL (74-106); Potassium 3.6 mmol/L (3.5-5.1); Protein, Total 6.3 g/dL (6.4-8.2); Sodium Level 139 mmol/L (136-145); Thyroid Stim Hormone (TSH) 6.43 uIU/mL (0.358-3.74)
--- NOTE | 2021-05-26 06:00 | EKG12_ITS ---
Test Reason : PRE OP Blood Pressure : / mmHG Vent. Rate : 055 BPM Atrial Rate : 055 BPM P-R Int : 142 ms QRS Dur : 076 ms QT Int : 416 ms P-R-T Axes : 033 014 021 degrees QTc Int : 397 ms Sinus bradycardia Otherwise normal ECG Confirmed by LAKESHA SPENCER, SAL ([id number]), telegraph editor GEETHA ACEVES ([id number]) on 06/04/2021 1:33:50 PM Referred By: FUNMILAYO Confirmed By:SAL CROWDER MD
[2021-05-26] MEDS: 0.9% Saline Lock 10 ML Syringe IV ×2 (08:11→11:11)
[2021-05-26] MEDS: Ondansetron 4 MG/2 ML Vial IV (08:11)
[2021-05-26] MEDS: HYDROmorphone 0.5 MG/0.5 ML SYRINGE IV (08:11)
[2021-05-26] MEDS: 0.9% Normal Saline 1,000 ML 90 ML IV ×2 (08:12→18:07)
[2021-05-26] MEDS: proCHLORPERazine 10 MG/2 ML Vial IV (11:11)
--- NOTE | 2021-05-26 12:58 | NURSING ---
PT LEAVING UNIT VIA BED FOR SCHEDULED PROCEDURE
--- NOTE | 2021-05-26 13:45 | GALL_PTH ---
PATIENT: WOO CONSTANTINO LOC: [facility]3 U#:[id number] AGE/SX: 26/F ROOM: MS319 RE05/25/[address]: Dr. Joel Lopez MD : 1995 BED: 1 DIS: 05/27/2021 SPEC #: [id number] RECD: 05/26/21 15:13 STATUS: MARILY MATTHEW #: [id number] LEAH: 05/26/21 13:[address]: Joel Lopez DEPT: SURGICAL PATHOLOGY RECD BY: Carmela Vegas ENTERED: 05/27/21 10:59 SP TYPE: YESSICA JENNINGS DR: Gayle Fagan, JOANNE Tissues: Gallbladder, NOS Procedures: Surgery Specimen Level III HEADER OPERATION: Laparoscopic cholecystectomy PRE-OP DIAGNOSIS: Cholelithiasis, biliary colic, abdominal pain right upper quadrant TISSUE SUBMITTED: Gallbladder MICROSCOPIC DIAGNOSIS Gallbladder, cholecystectomy: Chronic cholecystitis and cholesterolosis. SJ:josseline 05/28/2021 MICROSCOPIC DESCRIPTION Slides are reviewed. GROSS DESCRIPTION Received is one container labeled with the patient's name and designated gallbladder. The specimen consists of a gallbladder measuring 9 cm in length and up to 3 cm in diameter. The external surface is pink-luo, smooth and glistening for the most part. Focally it is granular, hemorrhagic and contains cautery artifact. The gallbladder contains yellow mucoid bile and multiple round greenish-brown stones measuring in aggregate 4 x 3.5 x 1 cm and 0.2 to 1 cm in greatest dimension. The mucosa is bile-stained and without any mass lesions. The gallbladder wall measures up to 0.3 cm in thickness. Community Resource Officer sections from the gallbladder and the cystic duct are submitted in one cassette. / SJ:josseline 05/27/2021 TC:3 CPT: 77402
[2021-05-26] MEDS: Bupivacaine Mpf 0.5% 30 ML VIAL (13:52)
[2021-05-26] MEDS: Lactated Ringers 1,000 ML 15 ML IV (14:00)
--- NOTE | 2021-05-26 14:13 | PCM.OPRPT ---
Problems Associated Problem List Diagnoses (1) Acute cholecystitis due to biliary calculus: Report of Operation Date of Procedure: 05/26/21 Pre-Operative Diagnosis: Acute cholecystitis with cholelithiasis Post-Operative Diagnosis: Same Surgery/Procedure Performed:: Laparoscopic cholecystectomy Surgeon: Joel Lopez inspector government property: Hiram Brewster Type of Anesthesia: General Anesthesiologist: Juanito Pond Specimen's removed: Gallbladder Drains: None Estimated Blood Loss (mL): < 25 cc Fluids Replaced: 1000 cc of crystalloid Description of Procedure: Patient was brought in the operating room. Placed in supine position. Under excellent general anesthetic abdomen was sterilely prepped and draped in usual fashion. Local was injected infraumbilically. Dissection was carried down to the fascia. The fascia grasped with Aldo. Varies needle was placed inside the abdomen. The abdomen was insufflated to 15 torr. A 10/12 trocar was placed without difficulty. The patient was placed in the head up and rotated to the left position. Subxiphoid #5 trochars placed, inferior to this another #5 trochars placed, laterally a #5 trocar was placed. All these were placed under direct visualization without injury to underlying structures. Fundus of the gallbladder was grasped retracted in a cephalad direction the infundibulum was grasped retracted laterally. I dissected out the cystic duct and the cystic artery. I placed hemoclips proximally distally and ligated the duct identified the cystic artery placed hemoclips proximally distally and ligated the artery. Identified the posterior branch of the cystic artery and placed a Hemoclip on this as well. Deliver the gallbladder from the gallbladder bed with use of electrocautery had no spillage of bile. Placed the specimen specimen bag delivered through the umbilical port without difficulty. Irrigated the right upper quadrant use electrocautery on the liver bed for good epistasis. This was achieved irrigated the right upper quadrant good with stasis was noted. Removed all the trochars under direct visualization good with stasis was noted. Close the fascia the umbilical port with a [id number] stitch of 0 Vicryl. Skin incisions were closed with subcuticular stitches of 4-0 Monocryl. Steri-Strips were applied sterile dressings were applied and the patient tolerated the procedure well. Admit VTE Documentation VTE Present on Admission: No VTE Mechan Device Prophylaxis: SCD's VTE Pharm Prophylaxis ordered?: No Reason prophylaxis not ordered:: Treatment Not Indicated
--- NOTE | 2021-05-26 14:18 | DCINST_ITS ---
Discharge Instructions Procedure Gallbladder Diet Discharge Diet: Light diet - advance as tolerated Activity Discharge Activity: May Not Drive (for 2-3 days or while taking narcotic pain medications.) and - (Do not drive, work heavy equipment or sign legal documents for 24 hours.) May shower in (days): 1 (with the bandage in place.) Additional Activity Instructions:: Pain medication may cause nausea. You should typically eat light foods as you take your pain medications. Pain medication may also cause constipation. If this is a problem for you, please discuss with your doctor. Dressing / Incision Call your doctor if your incision/area has: Continuous Slow Oozing, Sudden Increased Bleeding, Increased Pain/ Swelling, Increased Redness and Foul Smelling Discharge Call your doctor if you observe: Fever of 101 or Higher Suture Line Care: Avoid Pulling/Pushing and Avoid Pinching/Bending Additional Dressing/Incision Instructions:: Leave operative bandaids on for 2 days. When you remove dressing, leave Steri-Strips on until your follow-up appointment, or until the Steri-Strips fall off on their own. Follow Up Care Please Follow Up With: Greer Doe PA-C When: Call office to schedule an appointment to be seen in 7 days after surgery. Test Results: Test results from this visit will be discussed in further detail at your follow-up appointment, if applicable. Discharge Plan Admission Admit Date/Time: 05/25/21 12:36 Attending Provider: Joel Lopez Primary Care Provider: Gayle Fagan NP Discharge Orders/Prescriptions Prescriptions: New oxycodone-acetaminophen [Endocet] 5-325 mg tablet 1 tab PO Q4H PRN (Reason: pain) 5 Days Qty: 20 RF: 0 No Action levothyroxine 25 mcg tablet 25 mcg PO DAILY RF: 0 norethindrone-e.estradiol-iron [Junel Fe 24] 1 mg-20 mcg (24)/75 mg (4) tablet 1 tab PO QDAY Qty: 28 RF: 12 glucosamine-chondroitin 900 mg tablet PO RF: 0 multivitamin [Daily Multi-Vitamin] Tablet 1 tab PO DAILY RF: 0 hydrocodone-acetaminophen 5-325 mg tablet 1 tab PO Q6H PRN (Reason: pain) 3 Days Qty: 12 RF: 0 ondansetron 4 mg tablet,disintegrating 4 mg PO TID PRN PRN (Reason: nausea and vomiting) Qty: 21 RF: 0 simvastatin 10 mg Tablet 10 mg PO QHS RF: 0 Referrals / Follow Up: Gayle Fagan NP, SUGAR SAMPLER-C [Primary Care Provider] - Greer Doe PA-C [PHYSICIAN SPEECH LANGUAGE PATHOLOGIST ASSISTANT] -
[2021-05-26] MEDS: Ibuprofen 400 MG Tablet 800 MG PO (21:32)
[2021-05-27 00:12] VITALS: BP 114/67; PULSE 73; RESP 16; TEMP 36.8; O2SAT 96
[2021-05-27 03:51] VITALS: BP 112/70; PULSE 74; RESP 16; TEMP 36.7; O2SAT 96
[2021-05-27] MEDS: 0.9% Normal Saline 1,000 ML 90 ML IV (05:09)
[2021-05-27] MEDS: Ibuprofen 400 MG Tablet 800 MG PO ×2 (05:35→13:14)
[2021-05-27 07:21] VITALS: BP 106/65; PULSE 65; RESP 14; TEMP 36.9; O2SAT 96
[2021-05-27 12:07] VITALS: BP 105/69; PULSE 59; RESP 15; TEMP 36.4; O2SAT 100
--- NOTE | 2021-05-27 13:16 | DS.PCM_ITS ---
Providers Date of Admission: 05/25/21 Primary Care Physician: JOANNE Hull Reason For Visit: ACUTE CHOLECYSTITIS Diagnosis Discharge Diagnosis (1) Acute cholecystitis due to biliary calculus: Status: Acute Code(s): K80.00 - Calculus of gallbladder with acute cholecystitis without obstruction Medications at Discharge Home Medications levothyroxine 25 mcg tablet 25 mcg PO DAILY 09/11/18 norethindrone 1 mg-ethinyl estradiol 20 mcg (24)-iron 75 mg (4) tablet 1 tab PO QDAY #28 tab 09/11/18 antiarthritic combination no.2 900 mg tablet mg PO tab 12/05/18 multivitamin 1 tab PO DAILY 12/05/18 hydrocodone-acetaminophen 1 tab PO Q6H PRN 3 Days #12 tab 05/22/21 ondansetron 4 mg PO TID PRN PRN #21 tab 05/22/21 simvastatin 10 mg PO QHS 05/25/21 oxycodone-acetaminophen [Endocet] 1 tab PO Q4H PRN 5 Days #20 tab 05/26/21 ondansetron 4 mg PO Q6H 5 Days #20 tab 05/27/21 tramadol 50 mg PO Q6H PRN 5 Days #20 tab 05/27/21 Hospital Course Operations cholecystecomy Summary of Care Provided Hospital Course: Patient was admitted to the hospital with acute cholecystitis underwent laparoscopic cholecystectomy the next day. Subsequently spent the night was feeling better and was discharged in good condition. Weight / BMI Weight Weight: 295 lb Body Mass Index (BMI) 49.1 ABG / Lab / Microbiology Data Result Diagrams: 05/26/21 04:45 05/26/21 04:45 Microbiology: Microbiology 05/25/21 15:30 Nasal Secretion SARS-CoV-2 Antigen (Rapid) - Final D/C Instructions Discharge Diet: Light diet - advance as tolerated May shower in (days): 1 (with the bandage in place.) Additional Activity Instructions: Pain medication may cause nausea. You should typically eat light foods as you take your pain medications. Pain medication may also cause constipation. If this is a problem for you, please discuss with your doctor. Call your doctor if your incision/area has: Continuous Slow Oozing, Sudden Increased Bleeding, Increased Pain/ Swelling, Increased Redness and Foul Sme lling Discharge Call your doctor if you observe: Fever of 101 or Higher Suture Line Care: Avoid Pulling/Pushing and Avoid Pinching/Bending Additional Dressing/Incision Instructions: Leave operative bandaids on for 2 days. When you remove dressing, leave Steri-Strips on until your follow-up appointment, or until the Steri-Strips fall off on their own. Please Follow Up With: Greer Doe PA-C When: Call office to schedule an appointment to be seen in 7 days after surgery. Meaningful Use Info Meaningful Use Diagnoses (Choose all that apply): None applicable Discharge Plan Admission Admit Date/Time: 05/25/21 12:36 Attending Provider: Joel Lopez Primary Care Provider: Gayle Fagan NP Discharge Orders/Prescriptions Prescriptions: New oxycodone-acetaminophen [Endocet] 5-325 mg tablet 1 tab PO Q4H PRN (Reason: pain) 5 Days Qty: 20 RF: 0 tramadol 50 mg tablet 50 mg PO Q6H PRN (Reason: pain) 5 Days Qty: 20 RF: 0 ondansetron 4 mg tablet,disintegrating 4 mg PO Q6H 5 Days Qty: 20 RF: 0 No Action levothyroxine 25 mcg tablet 25 mcg PO DAILY RF: 0 norethindrone-e.estradiol-iron [Junel Fe 24] 1 mg-20 mcg (24)/75 mg (4) tablet 1 tab PO QDAY Qty: 28 RF: 12 glucosamine-chondroitin 900 mg tablet PO RF: 0 multivitamin [Daily Multi-Vitamin] Tablet 1 tab PO DAILY RF: 0 hydrocodone-acetaminophen 5-325 mg tablet 1 tab PO Q6H PRN (Reason: pain) 3 Days Qty: 12 RF: 0 ondansetron 4 mg tablet,disintegrating 4 mg PO TID PRN PRN (Reason: nausea and vomiting) Qty: 21 RF: 0 simvastatin 10 mg Tablet 10 mg PO QHS RF: 0 Referrals / Follow Up: Gayle Fagan NP, PROCESSING ANALYST-C [Primary Care Provider] - Greer Doe PA-C [PHYSICIAN GAME BREEDING FARM MANAGER] - Disposition Discharge Orders: Discharge Patient (Routine); Ordered 05/27/21 Ordered By: Dr. Joel Lopez
== END 2021-05-27 14:27 | disposition home or self-care (01) ==
LOC: ED 09:29 → MS3 13:19
PROVIDERS: Anesthesiology; Admitting Provider Surgery; Emergency Provider Student in an Organized Health Care Education/Training Program; PCP Nurse Practitioner Family; Visit Provider Surgery
PROC: (CPT 47562; principal; 2021-05-26 13:25)
DX: K80.12 Calculus of gallbladder with acute and chronic cholecystitis without obstruction (principal); M99.01 Segmental and somatic dysfunction of cervical region; M99.02 Segmental and somatic dysfunction of thoracic region; M99.03 Segmental and somatic dysfunction of lumbar region; M99.05 Segmental and somatic dysfunction of pelvic region; E05.90 Thyrotoxicosis, unspecified without thyrotoxic crisis or storm; Z79.899 Other long term (current) drug therapy; Z79.890 Hormone replacement therapy
CPT/HCPCS: 47562; 00790; 36415; 76705; 80048; 80053; 80076; 81025; 83690; 84443; 85025; 87426; 88304; 93005; 96361; 96365; 96366; 96375; 96376; 97802; 99218; 99251; 99284; J7030; J7120; A4216; G0378; G0463; J2405

== ENCOUNTER 2023-09-17 09:48 | Emergency (ER) | payer MEDICAID, SELFPAY ==
[2023-09-17 09:48] VITALS: BP 174/93; PULSE 90; RESP 14; TEMP 36.6; O2SAT 100; BMI 50.9
--- NOTE | 2023-09-17 10:29 | ED.VIS.GI ---
HPI HPI - GI History of Present Illness Chief Complaint: Flank Pain Narrative Narrative: 28-year-old female presenting with left flank pain. She states she has had it for about 12 days. Patient states the pain is a dull ache most of the time. She has sporadic sharp pain in the left flank. She does have nausea but she states it is related to eating. If she eats a small amount of food she does not get symptoms but if she eats too much she will get pain and it is in the left upper quadrant. Nausea seems to be only associated with this. No fevers or chills. No diarrhea or constipation. No urinary or vaginal complaints. Patient was seen by urgent care and noted to have blood in her urine. She was sent to the ER out of concern for possible kidney stone. Patient has history of cholecystectomy but no other surgeries. PFSH PFS Medical History Sprain of left foot Left ankle sprain Hyperthyroidism Allergies Home Medications ?Medication ?Instructions ?Recorded ?Last Taken ?Type levothyroxine 25 mcg tablet 25 mcg PO DAILY 09/11/18 Unknown History norethindrone 1 mg-ethinyl 1 tab PO QDAY #28 tabs 09/11/18 Unknown Rx estradiol 20 mcg (24)-iron 75 mg (4) tablet () antiarthritic combination no.2 900 mg PO 12/05/18 Unknown History mg tablet (glucosamine-chondroitin) multivitamin (Daily Multi-Vitamin 1 tab PO DAILY 12/05/18 Unknown History tablet) simvastatin 10 mg tablet 10 mg PO QHS 05/25/21 Unknown History ondansetron 4 mg disintegrating 4 mg PO Q8H PRN PRN Nausea #10 tabs 09/17/23 Unknown Rx tablet Allergy/AdvReac Type Severity Reaction Status Date / Time rizatriptan (From Maxalt) Allergy Anaphylaxis Verified 09/17/23 09:49 sumatriptan (From Imitrex) Allergy Anaphylaxis Verified 09/17/23 09:49 morphine AdvReac Vomiting Verified 09/17/23 09:49 Family History Grandmother Diabetes Heart disease Hypertension Father Diabetes Heart disease Hypertension Surgical History Brinkley teeth removed H/O shoulder surgery H/O dilation and curettage Social History Smoking Status: Never smoker alcohol intake: never substance use type: does not use caffeine: Yes what type of physical activity do you participate in: walking seatbelt use: always do you feel safe at home: Yes additional social history: single, works from home ROS ROS ED Constitutional Constitutional ED: Denies chills, fever(s) or sweats Eyes Eyes: Denies blurry vision or change in vision ENT ENT ED: Denies ear pain or sore throat Cardiovascular Cardiovascular: Denies chest pain, palpitations or racing heartbeat Respiratory/Chest Respiratory/Chest: Denies cough, dyspnea or sputum Gastrointestinal Gastrointestinal: Reports abdominal pain and nausea; Denies constipation, diarrhea or vomiting Genitourinary Genitourinary ED: Denies dysuria, hematuria or urinary frequency Musculoskeletal Musculoskeletal: Reports back pain; Denies arthralgias, myalgias or neck pain Integumentary Denies abscess, Abrasions or rash Neurologic Neurologic: Denies headache(s), paresthesias or weakness Psychiatric Psychiatric: Denies anxiety, depression, suicidal ideation or suicidal thoughts Endocrine Endocrinology: Denies polydipsia or polyuria EXAM Physical Exam Const Vital Signs: 09/17/23 09:48 09/17/23 12:09 09/17/23 12:31 Temperature 98 F 98.2 F Temperature Source Temporal Pulse Rate 90 68 68 Respiratory Rate 14 16 16 Blood Pressure 174/93 H 124/78 H 124/78 H Blood Pressure Mean 120 93 93 Pulse Ox 100 100 100 Oxygen Delivery Method Room Air Room Air Positive well nourished General Appearance ED: NAD; Negative for pallor HEENT Reports moist mucous membranes normocephalic and atraumatic Eyes PERRL and EOMs intact bilaterally Resp normal respiratory effort and clear to auscultation bilaterally Cardio regular rhythm GI Palpation: tender epigastric and LLQ Back/Spine General Back: CVA tenderness left Neuro CN's II-XII intact bilaterally, moves all extremities and no sensory deficits noted Sensorium / Orientation: alert Motor Exam: strength 5/5 throughout Psych mental status grossly normal and thought process normal Skin General Skin Exam: Negative for jaundice or pallor MDM MDM MDM Narrative Medical decision making narrative: Patient presenting with left flank pain and epigastric and left upper quadrant pain. Patient presenting with right flank pain. Differential includes colitis, diverticulitis, gastritis, pancreatitis, constipation, UTI, pyelonephritis, renal calculi, ureteral calculi, bowel obstruction, malignancy, dehydration, electrolyte abnormalities, , ectopic , ovarian cyst, ovarian torsion. CBC will be obtained to assess white blood cell count, hemoglobin, platelets. CMP to assess renal function, electrolytes, liver function, glucose. Lipase to assess for pancreatitis. Urinalysis to assess for UTI. Patient declines analgesia or antiemetics. CBC shows normal white blood cell count of 6.5. Hemoglobin 12.4. Platelets are normal at 265. Renal function and electrolytes. No evidence of tenderness.. LFTs are normal. Lipase is normal. hCG negative. Urinalysis negative for infection or occult blood. CT of the abdomen pelvis with IV contrast was obtained which shows no acute findings other than constipation. Patient counseled on findings. I feel she stable discharge at this time. Impression: 1. Abdominal pain Lab Data Attestation: I reviewed the patient's lab results. Labs: Laboratory Results - last 24 hr 09/17/23 09/17/23 09/17/23 10:10 10:10 10:50 WBC Cancelled 6.5 Corrected WBC Cancelled RBC Cancelled 4.36 Hgb Cancelled 12.4 Hct Cancelled 37.8 MCV Cancelled 86.7 MCH Cancelled 28.4 MCHC Cancelled 32.8 RDW Std Deviation Cancelled 41.5 RDW Coeff of Rober Cancelled 13.1 Plt Count Cancelled 265 MPV Cancelled 10.9 Immature Gran % (Auto) Cancelled 0.300 Neut % (Auto) Cancelled 61.7 Lymph % (Auto) Cancelled 30.3 [place] % (Auto) Cancelled 4.9 Eos % (Auto) Cancelled 2.3 Baso % (Auto) Cancelled 0.5 Absolute Neuts (auto) Cancelled 4.0 Absolute Lymphs (auto) Cancelled 1.98 Total Counted Cancelled Neutrophils % (Manual) Cancelled Band Neutrophils % Cancelled Lymphocytes % (Manual) Cancelled Monocytes % (Manual) Cancelled Eosinophils % (Manual) Cancelled Basophils % (Manual) Cancelled Metamyelocytes % Cancelled Myelocytes % Cancelled Promyelocytes % Cancelled Blast Cells % Cancelled Plasma Cell % (Manual) Cancelled Other Cells % Cancelled Nucleated RBC % Cancelled 0 Nucleated RBCs/100 WBC Cancelled Differential Comment Cancelled Diff Path Review Cancelled Hypersegmented Neuts Cancelled Atypical Lymphocytes Cancelled Reactive Lymphocytes Cancelled Smudge Cells Cancelled Toxic Granulation Cancelled Toxic Vacuolation Cancelled Dohle Bodies Cancelled Rick Rods Cancelled Platelet Estimate Cancelled Plt Morphology Comment Cancelled RBC Morphology Cancelled Cancelled Polychromasia Cancelled Hypochromasia Cancelled Basophilic Stippling Cancelled Anisocytosis Cancelled Microcytosis Cancelled Macrocytosis Cancelled Spherocytes Cancelled Sickle Cells Cancelled Target Cells Cancelled Tear Drop Cells Cancelled Ovalocytes Cancelled Stomatocytes Cancelled Lam[place] Bodies Cancelled [place] Cells Cancelled Bite Cells Cancelled Crenated Cell Cancelled Acanthocytes (Spur) Cancelled Rouleaux Cancelled Schistocytes Cancelled Sodium 138 Potassium 3.8 Chloride 107 Carbon Dioxide 25.0 Anion Gap 6 BUN 9 Creatinine 0.78 Estim Creat Clear Calc 149.37 Est GFR (MDRD) Af Amer 112 Est GFR (MDRD) Non-Af 93 BUN/Creatinine Ratio 11.6 Glucose 94 Calcium 9.0 Total Bilirubin 0.40 AST 29 ALT 17 Alkaline Phosphatase 93 Total Protein 7.7 Albumin 3.1 L Globulin 4.6 H Albumin/Globulin Ratio 0.7 L Lipase 38 HCG, Quant < 1 Urine Color Yellow Urine Clarity Sl. Cloudy Urine pH 6.0 Ur Specific [place] 1.015 Urine Protein Negative Urine Glucose (UA) Normal Urine Ketones Negative Urine Occult Blood Negative Urine Nitrite Negative Urine Bilirubin Negative Urine Urobilinogen Normal Ur Leukocyte Esterase 100 H Urine RBC 0 SEEN Urine WBC 5-10 SEEN Ur Squamous Epith Cells 10-25 SEEN Urine Bacteria RARE Urine Mucus 0 SEEN Radiography Diagnostic Testing: Clinical Impression(s) from Imaging Studies Abdomen/Pelvis CT 09/17/23 11:14 IMPRESSION: No acute abdominal or pelvic pathology. Constipation. Electronically Signed: Alirio Montano MD at 12:12 EDT , Discharge Plan Triage Chief Complaint: Flank Pain ED Provider: Daniel Han Dx/Rx/DC Orders Instructions: ED Flank Pain, Uncertain Cause Prescriptions: New ondansetron 4 mg tablet,disintegrating 4 mg PO Q8H PRN PRN (Reason: Nausea) Qty: 10 0RF No Action levothyroxine 25 mcg tablet 25 mcg PO DAILY norethindrone-e.estradiol-iron [] 1 mg-20 mcg (24)/75 mg (4) tablet 1 tab PO QDAY Qty: 28 12RF glucosamine-chondroitin 900 mg tablet PO multivitamin [Daily Multi-Vitamin] Tablet 1 tab PO DAILY simvastatin 10 mg Tablet 10 mg PO QHS Primary Care Provider: Gayle Fagan NP Referrals: Gayle Fagna NP, DIVISION ORDER TECHNICIAN-C [Primary Care Provider] - Print Language: Tuvaluan Disposition Disposition: Home, Self Care Discharge Date/Time: 09/17/23 12:35
[2023-09-17 10:40] LABS: Mucous, Urine 0 SEEN /hpf (<or=2+); Red Blood Cells-Urine 0 SEEN /hpf (0-5)
[2023-09-17 10:52] LABS: Color, Urine Yellow (Yellow); Glucose, Dipstick Normal (Normal); Ketone-Dipstick Negative (Negative); Leukocyte Esterase-Dipstick 100 /ul (Negative); Nitrite-Dipstick Negative (Negative); Occult Blood-Urine Negative /ul (Negative); Protein-Dipstick Negative (Negative); Specific Gravity, Urine 1.015 (1.002-1.030); Urine Bilirubin Dipstick Negative (Negative); Urine Clarity Sl. Cloudy (Clear); Urine Urobilinogen Normal (Normal)
[2023-09-17 10:53] LABS: Absolute Lymphocyte Count 1.98 X10^3/uL (0.83-4.51); Basophil# 0.03 X10^3/uL; Basophil% 0.5 % (0-1); Eosinophil# 0.15 X10^3/uL; Eosinophils% 2.3 % (0-5); Hematocrit 37.8 % (37-47); Hemoglobin 12.4 g/dL (12.0-15.0); Lymphocyte # 1.98 X10^3/ul (0.83-4.51); Lymphocyte % 30.3 % (19-41); Mean Corp Hgb Conc 32.8 g/dL (32-36); Mean Corpuscular Hgb 28.4 pg (27.0-32.0); Mean Corpuscular Volume 86.7 fL (81-99); Mean Platelet Vol. 10.9 fl (6.2-12.0); Monocyte# 0.32 X10^3/uL; Monocyte% 4.9 % (0-10); NRBC Flagged by Analyzer 0 % (0-5); Neutrophil # 4.03 X10^3/uL (2.7-7.7); Neutrophil % 61.7 % (47-70); Platelet Count 265 K/mm3 (150-450); RBC Distribution Width CV 13.1 % (11.6-14.6); RBC Distribution Width SD 41.5 fl (35.1-43.9); Red Blood Count 4.36 M/mm3 (4.2-5.4); White Blood Count 6.5 K/mm3 (4.4-11.0)
[2023-09-17 11:00] LABS: Bacteria RARE /hpf (None Seen); Squamous Epithelial Cells - UA 10-25 SEEN /hpf (5-10); White Blood Cells 5-10 SEEN /hpf (0-5)
[2023-09-17 11:06] LABS: ALB/GLOB Ratio 0.7 RATIO (0.9-2.4); AST(SGOT) 29 U/L (15-37); Alanine Aminotransfer ALT/SGPT 17 U/L (13-56); Albumin, Serum 3.1 g/dL (3.2-5.0); Alkaline Phosphatase 93 U/L (45-117); Anion Gap 6 (5-15); BUN 9 mg/dL (7-18); BUN/Creat Ratio 11.6 RATIO (10-20); Chloride 107 mmol/L (98-107); Creatinine, Serum 0.78 mg/dL (0.55-1.02); EST Glomerular Filtration Rate 93 mL/min (>60); Est Glom Filt Rate - Afr Amer 112 mL/min (>60); Estimated Creatinine Clearance 149.37 ml/min; Globulin 4.6 g/dL (2.2-4.2); Glucose 94 mg/dL (74-106); Lipase 38 U/L (13-75); Potassium 3.8 mmol/L (3.5-5.1); Protein, Total 7.7 g/dL (6.4-8.2); Sodium Level 138 mmol/L (136-145)
[2023-09-17 11:08] LABS: hCG Titer Quant., Serum < 1 mIU/mL (1-3)
--- NOTE | 2023-09-17 11:14 | CT_ITS ---
STUDY: CT ABDOMEN AND PELVIS WITH CONTRAST REASON FOR EXAM: Female, 28 years old. Left flank pain RADIATION DOSAGE (If Supplied By Facility): CTDIvol = ( 24 ) mGy, DLP = ( 1357 ) mGycm TECHNIQUE: Transaxial images were obtained through the abdomen and pelvis without oral contrast. 100 ml of Isovue-370 contrast was administered. Sagittal and coronal images were reconstructed. Individualized dose optimization techniques were used for this CT. COMPARISON: Prior study dated: 05/21/2021 FINDINGS: LOWER THORAX: The visualized lung bases are clear. The visualized portions of the heart and pericardium are within normal limits. GALLBLADDER / BILE DUCTS: The patient is status post cholecystectomy. There is no intrahepatic biliary duct dilatation. The common bile duct is normal in caliber. There are no calcified ductal stones. LIVER: The liver is within normal limits. There are no suspicious hepatic lesions. SPLEEN: The spleen is normal in size. PANCREAS: The pancreas is within normal limits. ADRENAL GLANDS: The adrenal glands are within normal limits. KIDNEYS / BLADDER: There are no renal or ureteral stones. There is no hydronephrosis. There are no focal renal lesions. The urinary bladder is partially distended and appears grossly unremarkable. STOMACH / BOWEL: Normal visualized stomach. There is no bowel obstruction or inflammation. There is a large amount of stool in the colon, consistent with constipation. The appendix is visualized and appears normal. PERITONEUM/RETROPERITONEUM: There is no abdominal or pelvic free air, free fluid or fluid collection. There is no abnormal soft tissue mass identified. There is no abdominal or pelvic lymphadenopathy. VESSELS: The aorta is normal in caliber. The IVC is unremarkable. BONES: There are no destructive osseous lesions. SOFT TISSUES: The visualized soft tissues are within normal limits. CT/Abdomen/Pelvis W IV Cont ONLY IMPRESSION: No acute abdominal or pelvic pathology. Constipation. Electronically Signed: Alirio Montano MD at 12:12 EDT ,
[2023-09-17 12:09] VITALS: BP 124/78; PULSE 68; RESP 16; O2SAT 100
[2023-09-17 12:31] VITALS: BP 124/78; PULSE 68; RESP 16; TEMP 36.8; O2SAT 100
== END 2023-09-17 12:35 | disposition home or self-care (01) ==
PROVIDERS: Emergency Provider Student in an Organized Health Care Education/Training Program; PCP Nurse Practitioner Family; Visit Provider Student in an Organized Health Care Education/Training Program
DX: R10.13 Epigastric pain (principal); R10.32 Left lower quadrant pain; Z90.49 Acquired absence of other specified parts of digestive tract
CPT/HCPCS: 74177; 80053; 81001; 83690; 84702; 85025; 99283; Q9967; A4216